=== PATIENT | male | born 1975 | race Caucasian/White ===

== ENCOUNTER 2021-02-08 07:08 | Day surgery (SDC) | payer BC ==
[2021-02-06 11:45] VITALS: BMI 27.4
[~2021-02-08 07:08] MED LIST: LACTATED RINGERS 1,000 ML IV SCH
[2021-02-08] MEDS ORDERED: LIDOCAINE 1% (10MG/ML) FOR IV START INTRADERMA ONE (07:45)
[2021-02-08 07:46] VITALS: TEMP 97.5
[2021-02-08] MEDS ORDERED: LIDOCAINE 1% INJ 10MG/ML (20 ML MDV) ONE (08:00)
[2021-02-08] MEDS ORDERED: PROPOFOL 10 MG/ML 20 ML VIAL IV ONE (08:00)
--- NOTE | 2021-02-08 08:07 | P.HPIHPCON ---
History of Present Illness H&P Date: 02/08/21 46-year-old male presents today for colonoscopy. He has had recent change in bowel function with smaller and looser stool. He denies any blood in his stool. States he has had occasional darker stool. Denies any family history of colon cancer. He has never had a colonoscopy in the past. Consent for Procedure: I have explained the operation/procedure to the patient, including the risks, benefits, side effects, alternative therapies (including not receiving the proposed treatment or service), the likelihood of the patient achieving his/her goals, and potential recuperation problems for the procedure/sedation/analgesia, as well as any blood products, if indicated. I also explained to the patient the risks, benefits and side effects of the alternatives, as well as the risks related to not receiving the proposed procedure, care, treatment, or services. - Review of Systems All systems: negative Past Medical History Additional Past Medical History / Comment(s): CHANGE IN BOWEL MOVEMENT History of Any Multi-Drug Resistant Organisms: None Reported Past Surgical History: Orthopedic Surgery Additional Past Surgical History / Comment(s): REPAIR LT RUPTURED ACHILLES TENDON Past Anesthesia/Blood Transfusion Reactions: No Reported Reaction Smoking Status: Former smoker - Past Family History Mother Family Medical History: Cancer Father Family Medical History: Cancer Medications and Allergies Home Medications Medication Instructions Recorded Confirmed Type No Known Home Medications 02/06/21 02/08/21 History Allergies Allergy/AdvReac Type Severity Reaction Status Date / Time No Known Allergies Allergy Verified 02/08/21 07:38 Surgical - Exam Osteopathic Statement: *. No significant issues noted on an osteopathic structural exam other than those noted in the History and Physical/Consult. Vital Signs Temp Pulse Resp BP Pulse Ox 97.5 F L 58 L 16 125/80 98 02/08/21 07:43 02/08/21 07:43 02/08/21 07:43 02/08/21 07:43 02/08/21 07:43 - General no distress - Neck trachea midline - Respiratory normal respiratory effort - Abdomen Abdomen: soft, non tender - Psychiatric oriented to time, oriented to person, oriented to place Assessment and Plan Plan: 38-year-old male with recent change in bowel function. We will plan for colonoscopy for further evaluation and screening. Risks, benefits and alternatives were provided to the patient. All questions answered. Further recommendations after procedure.
--- NOTE | 2021-02-08 08:40 | P.PCN ---
Date of Procedure: 02/08/21 Preoperative Diagnosis: Change in bowel function Screening Postoperative Diagnosis: Ascending colon polyp 2 Descending colon polyp Procedure(s) Performed: Colonoscopy with hot snare polypectomy Anesthesia: MAC Surgeon: Iris Malin Pathology: other (Ascending and descending colon polyps) Condition: stable Disposition: same day Indications for Procedure: 46-year-old male with recent change in bowel function presents for screening colonoscopy and evaluation. Risks, benefits and alternatives were provided to patient. Consent was obtained. Operative Findings: Ascending colon polyp 2 Descending colon polyp Description of Procedure: The patient was brought to the endoscopy suite and placed in left lateral decubitus position. Adequate sedation was achieved using conscious sedation. A digital rectal exam was performed and mild internal hemorrhoids were palpated. An endoscope was then placed in the rectum and advanced to the cecum as identified by landmarks including the appendiceal orifice and the ileocecal valve.. Colonoscope was then slowly withdrawn, examining for any mucosal abnormality. The cecum, ascending, transverse, descending and sigmoid colon were visualized adequately. 2 polyps were noted in the ascending colon. These polyps were noted to be flat and moderate in size. Both were removed with hot snare polypectomy. No large neoplastic lesions were noted. An additional polyp was noted in the descending colon. This was also removed with hot snare polypectomy. There was no evidence of diverticulosis. This was a moderate amount. Retroflexion was performed in the rectum and internal hemorrhoids were visible. Excess air was removed, the colonoscope withdrawn and the procedure terminated. The patient was then transferred to the recovery unit in stable condition. Repeat colonoscopy should be performed in 2 years due to number and size of polyps.
[2021-02-08 08:58] VITALS: BP 113/77; PULSE 65; RESP 16
== END 2021-02-08 09:27 | disposition home or self-care (01) ==
LOC: ORWHC2ENDO 07:08
PROVIDERS: ATTEND Surgery
DX: R19.4 Change in bowel habit (principal); D12.4 Benign neoplasm of descending colon; D12.2 Benign neoplasm of ascending colon
CPT/HCPCS: 88305; 45385; J2001; J2704

== ENCOUNTER 2022-06-30 14:11 | Emergency (ER) | payer OTHER, BC ==
--- NOTE | 2022-06-30 15:05 | XR ---
EXAMINATION TYPE: XR hand complete LT DATE OF EXAM: 06/30/2022 CLINICAL HISTORY: Pain with inability to straighten fourth finger after injury TECHNIQUE: Frontal, lateral and oblique images of the left hand are obtained. COMPARISON: None. FINDINGS: There is no acute fracture/dislocation evident in the left hand. Incomplete extension at t he second DIP joint suggests distal extensor tendon injury. The joint spaces in the left hand appear within normal limits. The overlying soft tissue appears unremarkable. IMPRESSION: There is no acute fracture or dislocation in the left hand.
--- NOTE | 2022-06-30 16:32 | ED ---
General Adult HPI - General Chief complaint: Extremity Injury, Upper Stated complaint: IHS,Finger Injury Time Seen by Provider: 06/30/22 15:53 Source: patient, RN notes reviewed Mode of arrival: ambulatory Limitations: no limitations - History of Present Illness Initial comments: Patient is a pleasant 47-year-old male presenting to the emergency department with concern with hand injury. Incident occurred today at work. Patient was doing training with law enforcement. Patient is unsure on exact mechanism however did move his hand/fingers forward. Following this patient is having difficulty extending the DIP of his left ring finger. No history of similar symptoms previously. Patient states only mild discomfort. - Related Data Home Medications Medication Instructions Recorded Confirmed No Known Home Medications 02/06/21 02/08/21 Allergies Allergy/AdvReac Type Severity Reaction Status Date / Time No Known Allergies Allergy Verified 02/08/21 07:38 Review of Systems ROS Statement: Those systems with pertinent positive or pertinent negative responses have been documented in the HPI. ROS Other: All systems not noted in ROS Statement are negative. Constitutional: Denies: fever Eyes: Denies: eye pain ENT: Denies: ear pain Respiratory: Denies: cough Cardiovascular: Denies: chest pain Endocrine: Denies: fatigue Gastrointestinal: Denies: abdominal pain Genitourinary: Denies: dysuria Musculoskeletal: Reports: as per HPI. Denies: back pain Skin: Denies: rash Past Medical History Additional Past Medical History / Comment(s): CHANGE IN BOWEL MOVEMENT History of Any Multi-Drug Resistant Organisms: None Reported Past Surgical History: Orthopedic Surgery Additional Past Surgical History / Comment(s): REPAIR LT RUPTURED ACHILLES TENDON Past Anesthesia/Blood Transfusion Reactions: No Reported Reaction Past Psychological History: No Psychological Hx Reported Smoking Status: Former smoker - Past Family History Mother Family Medical History: Cancer Father Family Medical History: Cancer General Exam Limitations: no limitations General appearance: alert, in no apparent distress Head exam: Present: atraumatic Eye exam: Present: normal appearance Neck exam: Present: normal inspection. Absent: tenderness Respiratory exam: Present: normal lung sounds bilaterally Cardiovascular Exam: Present: regular rate, normal rhythm Extremities exam: Present: normal capillary refill, other (Left ring finger patient unable to fully extend at the DIP. Flexion is normal. Patient is able to extend at the PIP. Distally the extremity is neurovascular intact.). Absent: tenderness Neurological exam: Present: alert, other (Unable to extend left ring finger at the DIP) Skin exam: Present: normal color. Absent: erythema Course Vital Signs 06/30/22 14:29 Temperature 97 F L Pulse Rate 74 Respiratory 20 Rate Blood Pressure 150/98 O2 Sat by Pulse 97 Oximetry Procedures - Orthopedic Splinting/Casting Injury #1 Side: left Upper Extremity Injury Location: finger (Left ring finger is splinted by myself with finger splint) Medical Decision Making - Medical Decision Making Patient aware of concern. Patient does have orthopedic friend Dr. Barfield and ora colin speak with Dr. Barfield and Dr. Hendrix and is have an appointment Thursday. Patient is advised also follow-up with his work as well as industrial health services. This [employer] attending physician report completed. - Radiology Data Interpreted by me: Left hand x-ray does not reveal acute fracture Disposition Clinical Impression: Rupture of extensor tendon of left hand Disposition: HOME SELF-CARE Condition: Stable Instructions (If sedation given, give patient instructions): Tendon Rupture (ED) Additional Instructions: Please follow-up Thursday with orthopedics as planned. Please also follow-up with industrial health services tomorrow. Keep finger immobilized in splint. Return for hand or finger problems, worsening symptoms or any other concerns. Is patient prescribed a controlled substance at d/c from ED?: No Referrals: Kelley Hendrix DO [Doctor of Osteopathic Medicine] - 1-2 days Time of Disposition: 16:31
[2022-06-30 16:46] VITALS: BP 126/78; PULSE 90; RESP 18; TEMP 98.7
== END 2022-06-30 16:46 | disposition home or self-care (01) ==
LOC: EC 14:11
DX: S66.812A Strain of other specified muscles, fascia and tendons at wrist and hand level, left hand, initial encounter (principal); Z87.891 Personal history of nicotine dependence; X50.9XXA Other and unspecified overexertion or strenuous movements or postures, initial encounter; Y92.69 Other specified industrial and construction area as the place of occurrence of the external cause; Y99.8 Other external cause status
CPT/HCPCS: 99283

== ENCOUNTER 2022-08-08 17:17 | Emergency (ER) | payer BC ==
[2022-08-08 18:00] VITALS: BP 176/109; PULSE 83; RESP 16; TEMP 97.4
--- NOTE | 2022-08-08 18:19 | XR ---
EXAMINATION TYPE: XR chest 2V DATE OF EXAM: 08/08/2022 COMPARISON: NONE HISTORY: Chest pain TECHNIQUE: FINDINGS: Heart is normal. Lungs are clear of infiltrate. No heart failure. There are no hilar masses . Thoracic aorta is atheromatous. No pleural effusion. Bony thorax is intact. IMPRESSION: No active cardiopulmonary disease. Normal heart
--- NOTE | 2022-08-08 18:59 | ED ---
Chest Pain HPI - General Source: patient, RN notes reviewed Mode of arrival: ambulatory Limitations: no limitations <Vivi Hagan - Last Filed: 08/08/22 19:01> <Ruben Chowdhury - Last Filed: 08/09/22 00:11> - General Chief Complaint: Chest Pain Stated Complaint: chest pain Time Seen by Provider: 08/08/22 18:54 - History of Present Illness Initial Comments: Patient is a 47-year-old male who presents to the emergency department with a chief complaint of chest pain. Over the past couple days patient has been ex periencing right eye blurriness, headache, nasal congestion. Patient saw his eye doctor today. States he a normal eye exam other than needing updated prescription contact lens. Patient then went to his PCP and was diagnosed with a sinus infection. While at the office he started to endorse chest tightness "all over his chest" which progressed to a sharp pain in the middle of the chest. There is no radiation. Pain is worsened with breathing and movement of the chest. No lightheadedness, dizziness, shortness of breath, cough. No fever, chills, other URI symptoms. Patient does note that he was feeling very anxious today due to his eye issues. Thinks he may have had his first panic attack. His pain has improved in the waiting room. Cardiac hx includes hypercholesterolemia. Mother has history of CAD and diabetes. Patient quit smoking 14 years ago after 15 year pack history. Reports occasional alcohol use. (Vivi Hagan) This is a 47-year-old male who did present with left sided sternal chest pain. The patient stated this chest pain has been present since earlier this afternoon and worsened with movement. The patient stated that this pain was there for approximately 30 minutes and has improved. The patient did state that he had some pain with deep breathing and only with movement. The patient denied any diaphoresis, nausea, vomiting as well as any previous episodes. The patient denied any other acute pain or complaints at this time. (Ruben Chowdhury) - Related Data Home Medications Medication Instructions Recorded Confirmed ALPRAZolam [Xanax] 0.5 mg PO HS PRN 08/08/22 08/08/22 Azithromycin [Zithromax Z Pack] See Taper PO DIRECTED 08/08/22 08/08/22 Fluticasone Propionate 2 spr EA NOSTRIL HS 08/08/22 08/08/22 Allergies Allergy/AdvReac Type Severity Reaction Status Date / Time No Known Allergies Allergy Verified 08/08/22 22:22 Review of Systems ROS Other: All systems not noted in ROS Statement are negative. <Danya,Vivi - Last Filed: 08/08/22 19:01> ROS Other: All systems not noted in ROS Statement are negative. <Ruben Chowdhury - Last Filed: 08/09/22 00:11> ROS Statement: Those systems with pertinent positive or pertinent negative responses have been documented in the HPI. EKG Findings - EKG Comments: EKG Findings:: An EKG was obtained was interpreted by myself. EKG showed a rate of 68, MN interval of 198, QRS duration of 89 and QTC 377. This EKG showed a normal sinus rhythm with no ST segment elevations or depressions noted. <Ruben Chowdhury - Last Filed: 08/09/22 00:11> Past Medical History Additional Past Medical History / Comment(s): CHANGE IN BOWEL MOVEMENT History of Any Multi-Drug Resistant Organisms: None Reported Past Surgical History: Orthopedic Surgery Additional Past Surgical History / Comment(s): REPAIR LT RUPTURED ACHILLES TENDON Past Anesthesia/Blood Transfusion Reactions: No Reported Reaction Past Psychological History: No Psychological Hx Reported Smoking Status: Former smoker - Past Family History Mother Family Medical History: Cancer Father Family Medical History: Cancer <DanyaVivi - Last Filed: 08/08/22 19:01> General Exam Limitations: no limitations <DanyaVivi - Last Filed: 08/08/22 19:01> Limitations: no limitations General appearance: alert, in no apparent distress Head exam: Present: atraumatic, normocephalic, normal inspection Eye exam: Present: normal appearance, PERRL Pupils: Present: normal accommodation ENT exam: Present: normal exam, normal oropharynx, mucous membranes moist Neck exam: Present: normal inspection, full ROM Respiratory exam: Present: normal lung sounds bilaterally Cardiovascular Exam: Present: regular rate, normal rhythm, normal heart sounds GI/Abdominal exam: Present: soft, normal bowel sounds Extremities exam: Present: normal inspection, full ROM Back exam: Present: normal inspection, full ROM Neurological exam: Present: alert, oriented X3, CN II-XII intact Psychiatric exam: Present: normal affect, normal mood Skin exam: Present: warm, dry <LucianaRuben - Last Filed: 08/09/22 00:11> Course Vital Signs 08/08/22 17:57 Temperature 97.4 F L Pulse Rate 83 Respiratory 16 Rate Blood Pressure 176/109 O2 Sat by Pulse 97 Oximetry Chest Pain MDM <LucianaRuben robison - Last Filed: 08/09/22 00:11> - MDM Was pt. sent in by a medical professional or institution (, EMILIANO, ENVIRONMENTAL ENGINEERING ASSISTANT, urgent care, hospital, or intermediate...) When possible be specific @ -No Did you speak to anyone other than the patient for history (EMS, parent, family, police, friend...)? What history was obtained from this source @ -No Did you review nursing and triage notes (agree or disagree)? Why? @ -I reviewed and agree with nursing and triage notes Were old charts reviewed (outside hosp., previous admission, EMS record, old EKG, old radiological studies, urgent care reports/EKG's, intermediate records)? Report findings @ -No old charts were reviewed Differential Diagnosis (chest pain, altered mental status, abdominal pain women, abdominal pain men, vaginal bleeding, weakness, fever, dyspnea, syncope, headac he, dizziness, GI bleed, back pain, seizure, CVA, palpatations, mental health)? @ -Acute coronary syndrome, pneumothorax, pneumonia EKG interpreted by me (3pts min.). @ -As above X-rays interpreted by me (1pt min.). @ -Chest x-ray was obtained and was interpreted by myself showing no acute process. CT interpreted by me (1pt min.). @ -None done U/S interpreted by me (1pt. min.). @ -None done What testing was considered but not performed or refused? (CT, X-rays, U/S, labs)? Why? @ -None What meds were considered but not given or refused? Why? @ -None Did you discuss the management of the patient with other professionals (professionals i.e. EMILIANO Martinez, ENVIRONMENTAL ENGINEERING ASSISTANT, lab, RT, psych nurse, psych social worker, christmas tree farm manager, teacher, chief security and safety officer, case therapist)? Give summary @ -No Was smoking cessation discussed for >3mins.? @ -No Was critical care preformed (if so, how long)? @ -No Were there social determinants of health that impacted care today? How? (Homelessness, low income, unemployed, alcoholism, drug addiction, transportatio n, low edu. Level, literacy, decrease access to med. care, detention, rehab)? @ -No Was there de-escalation of care discussed even if they declined (Discuss DNR or withdrawal of care, Hospice)? DNR status @ -No What co-morbidities impacted this encounter? (DM, HTN, Smoking, COPD, CAD, Cancer, CVA, ARF, Chemo, Hep., AIDS, mental health diagnosis, sleep apnea, morbid obesity)? @ -None Was patient admitted / discharged? Hospital course, mention meds given and route, prescriptions, significant lab abnormalities, going to OR and other pertinent info. @ -The patient was seen and evaluated in the emergency department. Physical exam, the patient was resting in bed comfortably with normal vital signs. All workup was negative. The patient did have reproducible pain with movement however denied of reproducible pain with palpation. The patient remained stable and likely had costochondritis versus chest wall strain. The patient was deemed stable for discharge and told to follow-up with his primary care physician for further workup and evaluation. The patient was agreeable to this and all discretions were answered. The patient was discharged home in stable condition. Undiagnosed new problem with uncertain prognosis? @ -No Drug Therapy requiring intensive monitoring for toxicity (Heparin, Nitro, Insulin, Cardizem)? @ -No Were any procedures done? @ -No Diagnosis/symptom? @ -Chest wall muscle strain Acute, or Chronic, or Acute on Chronic? @ -Acute Uncomplicated (without systemic symptoms) or Complicated (systemic symptoms)? @ -Uncomplicated Side effects of treatment? @ -No Exacerbation, Progression, or Severe Exacerbation? @ -No Poses a threat to life or bodily function? How? (Chest pain, [place], [place], pneumonia, PE, COPD, DKA, ARF, appy, cholecystitis, CVA, Diverticulitis, Homicidal, Suicidal, threat to staff... and all critical care pts) @ -No (Ruben Chowdhury) Disposition <Vivi Hagan - Last Filed: 08/08/22 19:01> Is patient prescribed a controlled substance at d/c from ED?: No Time of Disposition: 23:00 <Ruben Chowdhury - Last Filed: 08/09/22 00:11> Clinical Impression: Chest wall muscle strain Disposition: HOME SELF-CARE Condition: Stable Instructions (If sedation given, give patient instructions): Costochondritis (ED) Referrals: Kenneth Santo DO [Primary Care Provider] - 1-2 days
[2022-08-08 21:35] LABS: HCT 42.5 % (39.0-53.0); HGB 15.6 gm/dL (13.0-17.5); MCH 31.8 pg (25.0-35.0); MCHC 36.7 g/dL (31.0-37.0); MCV 86.5 fL (80.0-100.0); Mean Platelet Volume 8.7; Platelet Count 166 k/uL (150-450); RBC 4.91 m/uL (4.30-5.90); RDW 11.7 % (11.5-15.5); WBC 7.5 k/uL (3.8-10.6)
[2022-08-08 21:53] LABS: Prothrombin Time 10.4 sec (9.0-12.0)
[2022-08-08 22:34] LABS: ALT 36 U/L (4-49); AST 30 U/L (17-59); African American GFR (CKD) >90 (>60 ml/min/1.73 sqM); Albumin 4.5 g/dL (3.5-5.0); Alkaline Phosphatase 63 U/L (38-126); Anion Gap 7 mmol/L; Blood Urea Nitrogen 15 mg/dL (9-20); Calcium 9.3 mg/dL (8.4-10.2); Carbon Dioxide 29 mmol/L (22-30); Chloride 104 mmol/L (98-107); Glucose 98 mg/dL (74-99); Non-African American GFR(CKD) >90 (>60 ml/min/1.73 sqM); Potassium 4.2 mmol/L (3.5-5.1); Sodium 140 mmol/L (137-145); Total Bilirubin 0.5 mg/dL (0.2-1.3); Total Protein 7.4 g/dL (6.3-8.2)
[2022-08-08 23:16] LABS: Band Neutrophils % 1 %; Eosinophils # (M) 0.08 k/uL (0-0.7); Lymphocytes # (M) 2.48 k/uL (1.0-4.8); Monocytes # (M) 0.68 k/uL (0-1.0); Neutrophils % (M) 56 %; Nucleated Red Blood Cells 0 /100 WBC (0-0); Total Cells Counted 100
== END 2022-08-08 23:18 | disposition home or self-care (01) ==
LOC: EC 17:17
DX: S29.011A Strain of muscle and tendon of front wall of thorax, initial encounter (principal); Z87.891 Personal history of nicotine dependence; X58.XXXA Exposure to other specified factors, initial encounter
CPT/HCPCS: 36415; 71046; 80053; 83735; 84484; 85025; 85610; 85730; 93005; 99285

== ENCOUNTER → 2023-05-08 | Outpatient (CLI) | payer BC ==
--- NOTE | 2023-05-08 11:44 | US ---
EXAMINATION TYPE: US abdomen limited DATE OF EXAM: 05/08/2023 COMPARISON: NONE CLINICAL INDICATION: Male, 48 years old with history of R10.32 LEFT LOWER QUADRANT PAIN; Assess for hernia at location of: LLQ /groin Patient complains of lump and pain LLQ/ groin area. Scanning was performed directly over palpable area, LLQ/groin area. There appears to be a break in ab dominal wall with fat protruding measuring 1.3 cm. There are no masses or fluid collection identified . IMPRESSION: Fat-containing hernia suggested. Real-time scanning was performed by the treatment technician utilizing Valsalva and additional dynamic maneuve rs to assess for hernia.
== END | disposition home or self-care (01) ==
LOC: RADUSWWP 10:37
PROVIDERS: ATTEND Family Medicine
DX: R10.32 Left lower quadrant pain (principal)
CPT/HCPCS: 76705